=== PATIENT | female | born 2000 | race Caucasian/White ===

== ENCOUNTER 2020-12-17 13:43 | Emergency (ER) | payer OTHER ==
[~2020-12-17] VITALS: Ht 154.9 cm; Wt 54.5 kg
[2020-12-17] MEDS ORDERED: ETON68IM3 SD (14:07)
[2020-12-17] MEDS ORDERED: HydrOXYzine PAMOATE 25 MG CAPSULE PO ONE (15:30)
[2020-12-17 16:02] VITALS: BP 107/78
== END 2020-12-17 16:04 | disposition home or self-care (01) ==
LOC: EMS 13:47
DX: F41.9 Anxiety disorder, unspecified (principal); M79.10 Myalgia, unspecified site; F17.210 Nicotine dependence, cigarettes, uncomplicated
CPT/HCPCS: 99283

== ENCOUNTER 2020-12-17 17:09 | Emergency (ER) | payer OTHER ==
[~2020-12-17] VITALS: Ht 154.9 cm; Wt 54.5 kg
[~2020-12-17 17:09] MED LIST: ETON68IM3 SD
[2020-12-17] MEDS ORDERED: LORazepam 1 MG TABLET PO ONE (18:15)
[2020-12-17 21:00] VITALS: BP 120/76
== END 2020-12-17 21:30 | disposition home or self-care (01) ==
LOC: EMS 17:14
DX: F41.9 Anxiety disorder, unspecified (principal); F17.210 Nicotine dependence, cigarettes, uncomplicated
CPT/HCPCS: 99285; Z7502; Z7610